=== PATIENT | male | born 1990 ===

== ENCOUNTER 2023-02-26 12:25 | Emergency (ER) | payer OTHER, MEDICAID, SELFPAY ==
[2023-02-26 12:41] VITALS: BP 142/95; PULSE 78; RESP 16; TEMP 36.9; O2SAT 97; BMI 25.8
--- NOTE | 2023-02-26 13:43 | ED.PSYCH ---
HPI - Psych General Chief Complaint: Psychiatric Symptoms Stated Complaint: SI Time Seen by Provider: 02/26/23 12:31 Source: patient Mode of arrival: EMS Limitations: no limitations History of Present Illness HPI Narrative: Patient is a 32-year-old male arrives by EMS for evaluation of suicidal ideation. Patient states he was at work. He was at his baseline state of health. He states he was called into his supervisors office and was reprimanded because of an incident that happened a couple weeks ago. 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 There was discussion about him losing his job. Because of this he became very anxious and upset. He does have a therapist. He is not currently suicidal. Does not feel like he needs admitted to the hospital. He stated that he did make statements like ?jumping off the bridge? but that is just how he felt at the moment in his not feeling that way now. Review of Systems Constitutional Constitutional: Reports system reviewed and no additional complaints, except as documented Psychiatric Psychiatric: Reports system reviewed and no additional complaints, except as documented Exam Initial Vital Signs Initial Vital Signs: Vital Signs Temperature 98.4 F 02/26/23 12:41 Pulse Rate 78 02/26/23 12:41 Respiratory Rate 16 02/26/23 12:41 Blood Pressure 142/95 H 02/26/23 12:41 Pulse Oximetry 97 02/26/23 12:41 Oxygen Delivery Method Room Air 02/26/23 12:41 HENMT Head: normal to inspection and normocephalic Psych Other: Patient is calm, cooperative, no SI, no HI, Course Vital Signs Vital signs: Vital Signs - 8 hr 02/26/23 12:41 Temperature 98.4 F Pulse Rate 78 Respiratory Rate 16 Blood Pressure 142/95 H Pulse Oximetry 97 Oxygen Delivery Method Room Air MDM - Psych MDM Narrative Medical decision making narrative: Patient is not suicidal. Not homicidal. Does not want to be admitted to the hospital. Does not meet criteria for an involuntary admission. Feels safe at home. He is here with his mother who can be with him as well. He does have a counselor that he can talk with. No indication for labs. Will discharge patient home with return precautions. Discharge Plan Departure Patient Disposition: Home Clinical Impression: Stress reaction Activity Restrictions/Additional Instructions: Recommend that you continue to take any medications as directed. You can return to the emergency department at any point for new or worsening symptoms. Stand Alone Forms: Patient Portal/API
[2023-02-26 13:51] VITALS: BP 156/79; PULSE 70; RESP 16; O2SAT 97
== END 2023-02-26 13:51 | disposition home or self-care (01) ==
PROVIDERS: Emergency Provider Emergency Medicine
DX: F43.9 Reaction to severe stress, unspecified (principal)
CPT/HCPCS: 99282; 99283